=== PATIENT | male | born 1955 | race Caucasian/White ===

== ENCOUNTER 2020-02-05 09:31 | Emergency (ER) | payer OTHER, SELFPAY ==
[2020-02-05] VITALS (8 sets, daily range): BP systolic 123–185; BP diastolic 7–87; PULSE 63–78; RESP 15–18; TEMP 36.9; O2SAT 95–99; BMI 30.2
[2020-02-05] MEDS: SODIUM CHLORIDE 0.9% 1,000 ML 1000 ML IV (10:12)
[2020-02-05 10:22] LABS: Add Manual Diff / Slide Review NO; Basophils Absolute Auto 0 /uL (0-100); Basophils Percent Auto 0.3 % (0-2); Eosinophils Absolute Auto 0 /uL (0-450); Eosinophils Percent Auto 0.4 % (2-4); Hematocrit 39.6 % (41-53); Hemoglobin 14.1 g/dL (13.5-17.5); Lymphocytes Absolute Auto 800 /uL (1100-4500); Lymphocytes Percent Auto 7.2 % (25-40); Mean Corpuscular HGB Conc 35.5 % (30-36); Mean Corpuscular Hemoglobin 34.9 PG (26-34); Mean Corpuscular Volume 98.4 fL (80-100); Monocytes Absolute Auto 1200 /uL (0-900); Monocytes Percent Auto 11.1 % (3-14); Neutrophils Absolute Auto 8800 /uL (1500-7000); Platelet Count 214 X10^3/uL (150-400); Red Blood Cell Count 4.03 X10^6/uL (4.5-5.9); Red Cell Distribution Width 12.5 % (11.6-14.8); White Blood Cell Count 10.9 X10^3/uL (4.5-11.0)
--- NOTE | 2020-02-05 10:24 | ED_ITS ---
HPI - Abdominal Pain General Chief Complaint: Abdominal Pain Stated Complaint: abdominal pain 6x days Time Seen by Provider: 02/05/20 10:23 Source: patient Mode of arrival: Ambulatory Limitations: no limitations History of Present Illness HPI narrative: CC: LLQ pain HPI: The patient is a 65-year-old male who presents to the emergency department with significant severe lower abdominal pain. The patient admits to a past history of diverticulitis. He states that Saturday 3 days ago he was seen at [facility] in [place]. He states that he was discharged home and stated that nothing was wrong. He states that he has had pain in the left lower quadrant and has had excruciating pain when he tries to urinate. He denies any burning dysuria increased frequency or urgency and has never had kidney stones. He denies any back pain. The pain is 3/10 when he is resting comfortably and when he is up moving it is 10/10 in intensity. The pain is severe dull achy sharp pain. The patient has had decreased ability to eat because the pain and discomfort he has had no blood in his stools or diarrhea but has had mucoid stools. He has had no melena. He denies a history of Crohn's disease or ulcerative colitis. The patient does not smoke cigarettes she periodically drinks alcohol and does not use any drugs including marijuana products. He denies a history of pancreatitis diabetes mellitus any heart disease other than he had a mitral valve replacement. He denies COPD or asthma. At this time he denies any fever chills sweats sore throat dysphasia headache chest pain cough shortness of breath palpitations dizziness, nausea vomiting diarrhea or troubles your other than the pain where that he described earlier. He has had no dysuria frequency or urgency. Related Data Home Medications Medication Instructions Recorded Confirmed carvedilol [Coreg] 3.125 mg PO BID #0 04/16/12 02/05/20 lisinopril 5 mg PO BEDTIME #0 04/16/12 02/05/20 warfarin [Coumadin] 10 mg PO QDAY #2 04/16/12 02/05/20 aspirin 81 mg PO BEDTIME 02/05/20 02/05/20 Previous Rx's Medication Instructions Recorded ciprofloxacin HCl [Cipro] 500 mg PO Q12H #20 tab 02/05/20 hydrocodone-acetaminophen [[place]] 1 tab PO Q6H PRN #12 tab 02/05/20 metronidazole [Flagyl] 500 mg PO BID #20 tab 02/05/20 prochlorperazine maleate 10 mg PO TID PRN #15 tab 02/05/20 [Compazine] Allergies Allergy/AdvReac Type Severity Reaction Status Date / Time No Known Drug Allergies Allergy Verified 02/05/20 09:58 Review of Systems Review of Systems Narrative: Review of systems were all negative except for those mentioned in the history of present illness. Patient History Social History Smoking Status: Never smoker Smoking Status: Never smoker alcohol intake frequency: 0-2 drinks per day Alcohol type: wine Substance Use Type: does not use Exam Narrative Exam Narrative: PHYSICAL EXAM: CONSTITUTIONAL: Awake, Alert, Oriented, Coherent, Cooperative in NAD. Does not appear toxic or ill. The patient appears to be very stoic. HEAD: AT/NC EENT: PERRL, FROM of eyes, no discharge, no conjunctivitis. NOSE:No epistaxis or nasal drainage MOUTH:Oral mucosa is moist and pink, posterior pharynx is without erythema or exudate. NECK: Supple, no obvious JVD, Trachea is midline without stridor, no palpable LN. SPINE: Palpation of the cervical, Thoracic, Lumbar or Sacral spine reveals no gross deformity or tenderness. No CVA tenderness. THORAX: No deformity, retractions, chest wall tenderness. LUNGS: Clear, symmetrical breath sounds without respiratory distress. HEART: Normal heart tones, regular rhythm and rate without murmur. ABDOMEN: Soft but exquisitely tender with guarding on palpation of the left lower quadrant. Palpation mimics the pain he describes. Patient is unable to sit up because of the pain and discomfort. EXTREMITIES: No edema, deformity, calf tenderness. SKIN: No rash, bruising, . NEURO: Awake, alert, oriented, conversive, cranial nerves II-XII are symmetrical , moves all 4 extremities and is ambulatory. MENTAL HEALTH: Does not appear excessively anxious or depressed. Initial Vital Signs Initial Vital Signs: Vital Signs Temperature 98.5 F 02/05/20 09:54 Pulse Rate 67 02/05/20 09:54 Respiratory Rate 18 02/05/20 09:54 Blood Pressure 185/87 H 02/05/20 09:54 Pulse Oximetry 99 02/05/20 09:54 Course Course Course Narrative: 1228 The patient's laboratory chemistries revealed a WBC of 10.9, hemoglobin 14.1, hematocrit 34.6, LDH was elevated at 688 lactate is 0.6 lipase is [address] of the abdomen reveals that the patient has acute sigmoid diverticulitis. The patient will be administered 500 mg of Cipro IV and 500 mg of Flagyl IV. I will discuss the options with sending the patient home with pain medications and antibiotics. 1233: I informed the patient that he has acute sigmoid diverticulitis. He states that he has had it before. He wants to try going home. He was informed that we will give him an IV dose of antibiotics to jump start it. He knows the risks that he can get worse despite the medicines and that he may need to be referred re-evaluate it in 48-72 hours. He will be advised to advance his diet as tolerated to start off with clear liquid diet and take the medications as prescribed. Orders Ordered: Discontinued Medications Sodium Chloride (Normal Saline 0.9%) 1,000 mls @ 1,000 mls/hr IV BOLUS ONE Stop: 02/05/20 11:08 Last Infusion: 02/05/20 11:25 Dose: 0 mls/hr Documented by: Admin: 02/05/20 10:12 Dose: 1,000 mls/hr Documented by: KATIE Sodium Chloride (Normal Saline 0.9%) 1,000 mls @ 1,000 mls/hr IV BOLUS PRN PRN Reason: Fluid replacement Ciprofloxacin (Cipro) 400 mg in 200 mls @ 200 mls/hr IV Q12H MUNDO Last Infusion: 02/05/20 14:35 Dose: 0 mls/hr Documented by: Admin: 02/05/20 13:32 Dose: 200 mls/hr Documented by: TRISTA Metronidazole (Flagyl) 500 mg in 100 mls @ 100 mls/hr IV NOW ONE Stop: 02/05/20 13:29 Last Infusion: 02/05/20 13:31 Dose: 0 mls/hr Documented by: Admin: 02/05/20 12:39 Dose: 100 mls/hr Documented by: TRISTA Morphine Sulfate (Morphine) 4 mg IV NOW ONE Stop: 02/05/20 10:58 Last Admin: 02/05/20 11:20 Dose: Not Given Documented by: TRISTA Ondansetron HCl (Zofran) 4 mg IV NOW ONE Stop: 02/05/20 10:58 Last Admin: 02/05/20 11:19 Dose: 4 mg Documented by: TRISTA Vital Signs Vital signs: Vital Signs - 8 hr 02/05/20 09:54 02/05/20 10:30 02/05/20 11:00 Temperature 98.5 F Pulse Rate 67 64 65 Respiratory Rate 18 Blood Pressure 185/87 H 124/72 138/73 Pulse Oximetry 99 95 97 02/05/20 11:22 02/05/20 11:30 02/05/20 11:41 Temperature Pulse Rate 65 63 64 Respiratory Rate 15 Blood Pressure 140/74 133/70 133/70 Pulse Oximetry 99 97 95 02/05/20 12:00 02/05/20 14:44 Temperature Pulse Rate 65 78 Respiratory Rate 18 Blood Pressure 123/71 127/7 L Pulse Oximetry 97 98 MDM - Abdominal Pain Medical Records Attestation: I reviewed the patient's medical records. Lab Data Attestation: I reviewed the patient's lab results. Result diagrams: 02/05/20 10:05 02/05/20 10:05 Labs: Lab Results 02/05/20 02/05/20 02/05/20 Range/Units 10:05 10:05 10:05 WBC 10.9 (4.5-11.0) X10^3/uL RBC 4.03 L (4.5-5.9) X10^6/uL Hgb 14.1 (13.5-17.5) g/dL Hct 39.6 L (41-53) % MCV 98.4 (80-100) fL MCH 34.9 H (26-34) PG MCHC 35.5 (30-36) % RDW 12.5 (11.6-14.8) % Plt Count 214 (150-400) X10^3/uL Neut % (Auto) 81.0 H (50-75) % Lymph % (Auto) 7.2 L (25-40) % [place] % (Auto) 11.1 (3-14) % Eos % (Auto) 0.4 L (2-4) % Baso % (Auto) 0.3 (0-2) % Neut # (Auto) 8800 H (4523-3330) /uL Lymph # (Auto) 800 L (8605-0762) /uL [place] # (Auto) 1200 H (0-900) /uL Eos # (Auto) 0 (0-450) /uL Baso # (Auto) 0 (0-100) /uL PT 26.9 H (10.1-12.7) SECONDS INR 2.3 H (0.9-1.3) APTT 34 (26.4-36.2) SECONDS Sodium 134 L (137-145) mmol/L Potassium 4.1 (3.4-5.1) mmol/L Chloride 103 (98-107) mmol/L Carbon Dioxide 26 (22-32) mmol/L BUN 15 (9-20) mg/dL Creatinine 1.00 (0.66-1.25) mg/dL Estimated GFR > 60.0 (>60) mL/min BUN/Creatinine Ratio 15.0 (6-22) Glucose 94 (80-110) mg/dL Lactate (0.7-2.1) mmol/L Calcium 9.0 (8.4-10.2) mg/dL Total Bilirubin 1.1 (0.2-1.3) mg/dL AST 31 (17-59) IU/L ALT 23 (<50) IU/L Alkaline Phosphatase 74 (38-126) U/L Lactate Dehydrogenase (313-618) U/L Total Protein 7.2 (6.3-8.2) g/dL Albumin 4.0 (3.5-5.0) g/dL Globulin 3.2 (1.7-4.1) g/dL Albumin/Globulin Ratio 1.3 (1.0-2.8) Lipase 44 (23-300) U/L Urine Color Urine Appearance Urine pH (4.5-8.0) Ur Specific [place] (1.000-1.035) Urine Protein (Negative) Urine Glucose (UA) (Negative) g/dL Urine Ketones (NEGATIVE) Urine Occult Blood (Negative) Urine Nitrate (Negative) Urine Bilirubin (NEGATIVE) Urine Urobilinogen (0.2) E.U./dL Ur Leukocyte Esterase (NEGATIVE) Urine RBC (0-5/HPF) Urine WBC (0-5/HPF) Urine Bacteria (None) Ur Culture Indicated? 02/05/20 02/05/20 02/05/20 Range/Units 10:05 10:05 12:25 WBC (4.5-11.0) X10^3/uL RBC (4.5-5.9) X10^6/uL Hgb (13.5-17.5) g/dL Hct (41-53) % MCV (80-100) fL MCH (26-34) PG MCHC (30-36) % RDW (11.6-14.8) % Plt Count (150-400) X10^3/uL Neut % (Auto) (50-75) % Lymph % (Auto) (25-40) % [place] % (Auto) (3-14) % Eos % (Auto) (2-4) % Baso % (Auto) (0-2) % Neut # (Auto) (4472-1124) /uL Lymph # (Auto) (5732-3513) /uL [place] # (Auto) (0-900) /uL Eos # (Auto) (0-450) /uL Baso # (Auto) (0-100) /uL PT (10.1-12.7) SECONDS INR (0.9-1.3) APTT (26.4-36.2) SECONDS Sodium (137-145) mmol/L Potassium (3.4-5.1) mmol/L Chloride (98-107) mmol/L Carbon Dioxide (22-32) mmol/L BUN (9-20) mg/dL Creatinine (0.66-1.25) mg/dL Estimated GFR (>60) mL/min BUN/Creatinine Ratio (6-22) Glucose (80-110) mg/dL Lactate 0.6 L (0.7-2.1) mmol/L Calcium (8.4-10.2) mg/dL Total Bilirubin (0.2-1.3) mg/dL AST (17-59) IU/L ALT (<50) IU/L Alkaline Phosphatase (38-126) U/L Lactate Dehydrogenase 688 H (313-618) U/L Total Protein (6.3-8.2) g/dL Albumin (3.5-5.0) g/dL Globulin (1.7-4.1) g/dL Albumin/Globulin Ratio (1.0-2.8) Lipase (23-300) U/L Urine Color Yellow Urine Appearance Clear Urine pH 5.5 (4.5-8.0) Ur Specific [place] <=1.005 (1.000-1.035) Urine Protein Negative (Negative) Urine Glucose (UA) Negative (Negative) g/dL Urine Ketones Trace H (NEGATIVE) Urine Occult Blood Trace-lysed (Negative) Urine Nitrate Negative (Negative) Urine Bilirubin Negative (NEGATIVE) Urine Urobilinogen 0.2 (0.2) E.U./dL Ur Leukocyte Esterase Negative (NEGATIVE) Urine RBC 0-1/hpf (0-5/HPF) Urine WBC None seen (0-5/HPF) Urine Bacteria None seen (None) Ur Culture Indicated? Cult not indicated ECG Data Attestation: I personally reviewed and interpreted this ECG as follows: Interpretation: 1156: The patient's EKG obtained at 10:12 a.m. reveals a normal sinus rhythm with a ventricular rate of 65. Intervals appear to be normal QRS is slightly prolonged at 108 milliseconds. QTC is normal at 428 milliseconds axis is left axis deviation. The patient has inverted T-waves in leads III V1 V2 and questionably V3 indicating that the patient may have had some anteroseptal ischemia. There are no other acute diagnostic ST or T-wave changes. Discharge Plan Departure Patient Disposition: Home Clinical Impression: Diverticulitis Abdominal pain Qualifiers: Abdominal location: left lower quadrant Qualified Code(s): R10.32 - Left lower quadrant pain Discharge Date/Time: 02/05/20 14:45 Instructions: DI for Diverticulitis Activity Restrictions/Additional Instructions: 1. Follow-up as necessary with your primary care physician to be re-evaluated in 48-72 hours if not improved and the pain is continuing. 2. Start off with a clear liquid diet and advance her diet as tolerated. 3. If you become obstructed and cannot have a bowel movement, develop worsening pain, developed persistent nausea and vomiting and unable to keep her medications or fluids down develops high fever, racing of your heart, feelings of being faint or that she may pass out you need to return to the emergency department. 4. Take the medications as directed. 5. There CT scan revealed that you have acute sigmoid diverticulitis. Prescriptions: New prochlorperazine maleate [Compazine] 10 mg tablet 10 mg PO TID PRN (Reason: nausea and vomiting) Qty: 15 RF: 0 ciprofloxacin HCl [Cipro] 500 mg tablet 500 mg PO Q12H Qty: 20 RF: 0 metronidazole [Flagyl] 500 mg tablet 500 mg PO BID Qty: 20 RF: 0 hydrocodone-acetaminophen [[place]] 5-325 mg tablet 1 tab PO Q6H PRN (Reason: pain) Qty: 12 RF: 0 No Action warfarin [Coumadin] 7.5 MG tablet 10 mg PO QDAY Qty: 2 RF: 0 carvedilol [Coreg] 3.125 MG tablet 3.125 mg PO BID Qty: 0 RF: 0 lisinopril 5 MG tablet 5 mg PO BEDTIME Qty: 0 RF: 0 aspirin 81 mg Tablet,Chewable 81 mg PO BEDTIME RF: 0 Referrals: Malathi Malik MD [Primary Care Provider] -
[2020-02-05 10:25] LABS: INR 2.3 (0.9-1.3); Prothrombin Time 26.9 SECONDS (10.1-12.7)
[2020-02-05 10:28] LABS: PTT Partial Thromboplastin Tim 34 SECONDS (26.4-36.2)
[2020-02-05 10:31] LABS: Alanine Aminotransferase 23 IU/L (<50); Albumin Globulin Ratio 1.3 (1.0-2.8); Alkaline Phosphatase 74 U/L (38-126); Aspartate Aminotransferase 31 IU/L (17-59); Bilirubin Total 1.1 mg/dL (0.2-1.3); Blood Urea Nitrogen 15 mg/dL (9-20); Carbon Dioxide 26 mmol/L (22-32); Chloride 103 mmol/L (98-107); Estimated Glomerular Filt Rate > 60.0 mL/min (>60); Globulin 3.2 g/dL (1.7-4.1); Glucose 94 mg/dL (80-110); HEMOLYSIS < 15 (0-50); Lipase 44 U/L (23-300); Potassium 4.1 mmol/L (3.4-5.1); Sodium 134 mmol/L (137-145); Total Protein 7.2 g/dL (6.3-8.2)
[2020-02-05 10:32] LABS: Lactate (Lactic Acid) 0.6 mmol/L (0.7-2.1)
--- NOTE | 2020-02-05 11:12 | DI.CT.S_ITS ---
PROCEDURE: CT ABDOMEN PELVIS W CON INDICATIONS: severe left lower quadrant abdominal pain TECHNIQUE: After the administration of intravenous contrast, 5 mm thick sections acquired from the diaphragm to the symphysis. 5 mm coronal and sagittal reformats were acquired. For radiation dose reduction, the following was used: automated exposure control, adjustment of mA and/or kV according to patient size. COMPARISON: None. FINDINGS: Image quality: Excellent. ABDOMEN: Lung bases: Lung bases are clear. Previous mitral valve surgery. Left atrium is enlarged. Solid organs: Liver is normal in size and enhancement. Tiny low density lesions are presumed to represent cysts versus hemangiomata. Gallbladder is unremarkable. Biliary system is non dilated. Pancreas enhances normally. Spleen is normal in size and enhancement. No adrenal nodules. Kidneys demonstrate normal size and enhancement, without hydronephrosis. Multiple left perirenal cysts. Peritoneum and bowel: Sigmoid diverticulitis. Findings include diffuse thickening of the wall of the sigmoid and inflammatory change in the adjacent fat. No free air or abscess cavity. Incidental note made of gastric diverticulum. If Nodes and vessels: No retroperitoneal or mesenteric adenopathy by size criteria. Aorta and inferior vena cava are normal in size. Miscellaneous: Small periumbilical hernia containing fat. PELVIS: Genitourinary: Bladder wall thickness is normal. Prostate is enlarged. Miscellaneous: Fat-containing left inguinal hernia. No inguinal adenopathy. Bones: No suspicious bony lesions. No vertebral body compression fractures. IMPRESSION: 1. Acute sigmoid diverticulitis. Comment: If the patient has not had recent colonoscopy, would recommend direct visualization of the sigmoid to exclude underlying lesion after acute symptoms have resolved. Dictated by: Cristian Arenas M.D. on 02/05/2020 at 10:28 Approved by: Cristian Arenas M.D. on 02/05/2020 at 10:32
[2020-02-05] MEDS: ONDANSETRON 4 MG/2 ML INJ IV (11:19)
[2020-02-05 11:49] LABS: Lactate Dehydrogenase 688 U/L (313-618)
[2020-02-05 12:29] LABS: Appearance Urine UA CLEAR; Bacteria Urine None Seen; Bilirubin Urine UA NEGATIVE (NEGATIVE); Color Urine UA YELLOW; Glucose Urine UA NEGATIVE (Negative); Ketones Urine UA TRACE (NEGATIVE); Leukocyte Esterase Urine UA NEGATIVE (NEGATIVE); Nitrite Urine UA NEGATIVE (Negative); Occult Blood Urine UA TRACE-LYSED (Negative); Protein Urine UA NEGATIVE (Negative); Specific Gravity Urine UA <=1.005 (1.000-1.035); Urobilinogen Urine UA 0.2 E.U./dL (0.2); WBC Urine None Seen (0-5/HPF); pH Urine UA 5.5 (4.5-8.0)
[2020-02-05 12:38] LABS: Culture Indicated Urine Cult Not Indicated; RBC Urine 0-1/HPF (0-5/HPF)
[2020-02-05] MEDS: metroNIDAZOLE 500 MG/100 ML PIGGYBACK 100 MG IV (12:39)
[2020-02-05] MEDS: CIPROFLOXACIN 400 MG/200 ML PIGGYBACK 200 MG IV (13:32)
== END 2020-02-05 14:45 | disposition home or self-care (01) ==
PROVIDERS: Emergency Provider Emergency Medicine; PCP Specialist
DX: K57.92 Diverticulitis of intestine, part unspecified, without perforation or abscess without bleeding (principal); R10.32 Left lower quadrant pain
CPT/HCPCS: 36415; 51798; 74177; 80053; 81001; 83605; 83615; 83690; 85025; 85610; 85730; 93005; 96361; 96365; 96367; 96375; 99284; J0744; J2405